=== PATIENT | female | born 1970 | race Caucasian/White ===

== ENCOUNTER 2018-03-23 16:47 | Outpatient (CLI) | payer BC ==
--- NOTE | 2018-03-23 19:01 | RAD ---
RIGHT ANKLE THREE VIEWS: History: 47-year-old female with history of right ankle pain following a twisting injury. FINDINGS: Soft tissue swelling, particularly laterally. Minimal increased density in the region of the ankle malissa int, possibly representing some ankle joint effusion. Small bony density adjacent to the tip of the f ibula, possibly a chip type fracture versus an ununited apophysis which I favor over a fracture. No o ther acute fracture. No talar dome osteochondral lesion. IMPRESSION: Soft tissue swelling, particularly laterally. Bony density adjacent to the fibula tip, probably repre senting an unfused secondary ossification center rather than a small chip type fracture. If patient h as peristent or worsening unexplained pain or evidence for instability, consider nonemergent follow u p ankle MRI for further assessment. POS: JULIET
== END 2018-03-23 16:48 | disposition home or self-care (01) ==
LOC: BICRAD 16:47
PROVIDERS: ATTEND Family Medicine
DX: M25.571 Pain in right ankle and joints of right foot (principal); M79.89 Other specified soft tissue disorders

== ENCOUNTER 2019-05-22 09:22 | Outpatient (CLI) | payer BC ==
--- NOTE | 2019-06-13 13:06 | MMO ---
Bilateral MAMMO Bilat Screen [facility]. CLINICAL HISTORY: Patient is 49 years old and is seen for screening. The patient has no family history of breast cancer. The patient has no personal history of cancer. VIEWS: The views performed were: bilateral craniocaudal with tomosynthesis and bilateral mediolateral oblique with tomosynthesis. FILMS COMPARED: The present examination has been compared to prior imaging studies performed at [facility] on 09/26/2012, 11/24/2013 and 01/09/2016. This study has been interpreted with the assistance of computer-aided detection. MAMMOGRAM FINDINGS: The breasts are heterogeneously dense, which could obscure a lesion on mammography. There are no suspicious masses, suspicious calcifications, or new areas of architectural distortion. IMPRESSION: THERE IS NO MAMMOGRAPHIC EVIDENCE OF MALIGNANCY. A ROUTINE FOLLOW-UP MAMMOGRAM IN 1 YEAR IS RECOMMENDED. THE RESULTS OF THIS EXAM WERE SENT TO THE PATIENT. ACR BI-RADS Category 1 - Negative MAMMOGRAPHY NOTE: 1. A negative mammogram report should not delay a biopsy if a dominant of clinically suspicious mass is present. 2. Approximately 10% to 15% of breast cancers are not detected by mammography. 3. Adenosis and dense breasts may obscure an underlying neoplasm. Reported by: SANDY LEMA MD Electonically Signed: [id number]
== END 2019-05-22 09:23 | disposition home or self-care (01) ==
LOC: BICMAMMO 09:22
PROVIDERS: ATTEND Family Medicine
DX: Z12.31 Encounter for screening mammogram for malignant neoplasm of breast (principal)
CPT/HCPCS: 77063; 77067